=== PATIENT | male | born 1955 | race Caucasian/White ===

== ENCOUNTER → 2016-10-26 | Outpatient (CLI) | payer OTHER ==
[~2016-10-26] MED LIST: ADVAIR 250/501 DISK IH; ADVAIR HFA120 INHALA IH; AMLODIPINE BESY10 MG PO; BUPRENORPHIN-N1 EACH SL; BUPRENORPHINE HC2 MG SL; BUPRENORPHINE HC8 MG PO; BUPRENORPHINE HC8 MG SL; CARAFATE1 GM PO; CASTOR OIL PO; CATAPRES0.1 MG PO; CATAPRES0.2 MG PO; CELEXA10 M1 PO; CLONIDINE HCL0.2 MG PO; CONSTULOSE10 GM/15 M PO; DICYCLOMINE HCL20 MG PO; DOXEPIN HCL100 MG PO; DUONEB 2.5-0.5 M3 ML AEROSOL; FENTANYL1 EAC5 TD; FEOSOL325 MG PO; FLAGYL500 MG PO; FLOVENT 22120 INHALA IH; GABAPENTIN600 MG PO; HARVONI 90-4001 EACH PO; INCRUSE ELLI62.5 MCG IH; IPRATROPIU0.2 MG/1 M IH; LIDOCAINE700 MG TD; LINEZOLID600 MG PO; LOPRESSOR25 MG PO; MORPHINE SULFAT15 M1 PO; MS CONTIN,ORAMO30 MG PO; MYLICON,MYLANTA80 MG PO; NAPROXEN500 M2 PO; NEURONTIN100 MG PO; OMEPRAZOLE40 M1 PO; ONDANSETRON HCL4 MG SL; ONDANSETRON ODT4 MG PO; OXYCODONE-APAP1 EACH PO; PEPTO BISMOL240 ML PO; PERCOCET 5/31 TABLET PO; PREDNISONE20 MG PO; PRILOSEC20 MG PO; PRINIVIL10 MG PO; PROBIOTIC1 EAC1 PO; PROPRANOLOL HCL10 MG PO; PROVENTIL,2.5 MG/3 M IH; PROVENTIL17 GM IH; RANITIDINE HCL150 MG PO; RANITIDINE HCL300 M1 PO; REGLAN10 MG PO; REGLAN5 MG PO; SENOKOT,SENN1 TABLET PO; SPIRIVA RESPIMAT4 GM IH; SPIRONOLACTONE50 MG PO; SUBOXONE 8 MG-1 EAC2 PO; SUBOXONE PO; TESTOSTERO200 MG/12 IM; TYLENOL EXTRA500 MG PO; VANCOCIN HCL125 MG PO; VENTOLIN HFA18 GM IH; ZANTAC150 MG PO; ZESTRIL,PRINIVI20 MG PO; ZESTRIL40 MG PO; ZITHROMAX Z-PA250 MG PO; ZITHROMAX500 MG PO; ZOCOR10 M1 PO
== END | disposition home or self-care (01) ==
LOC: RAD 10-19 08:15
DX: R18.8 Other ascites (principal); R10.30 Lower abdominal pain, unspecified; K74.69 Other cirrhosis of liver; Z53.8 Procedure and treatment not carried out for other reasons
CPT/HCPCS: 76705

== ENCOUNTER 2017-06-06 00:36 | Inpatient (IN) | payer OTHER ==
[~2017-06-06] VITALS: Ht 175.3 cm; Wt 53.2 kg
[2017-06-06 01:20] LABS: HEMATOCRIT 33.3 % (38.0-50.0); MCH 28.1 PG (29.0-34.0); MCHC 32.4 G/DL (30.0-36.0); MCV 86.5 FL (86-99); MEAN PLAT.VOLUME 10.6 uM^3 (9.0-12.4); PLATELET COUNT 104 K/uL (156-360); RBC DIS.WIDTH-CV 14.9 % (11.8-14.6); RBC DIS.WIDTH-SD 46.8 % (39-53); RED BLOOD COUNT 3.85 M/uL (4.00-5.50); WHITE BLOOD COUNT 8.6 K/uL (4.1-10.2)
[2017-06-06 01:33] LABS: CHLORIDE 107 mEq/L (99-109); POTASSIUM 3.8 mEq/L (3.7-5.4); SODIUM 142 mEq/L (136-147)
[2017-06-06 01:35] LABS: GLUCOSE 166 mg/dL (70-99)
[2017-06-06 01:36] LABS: ANION GAP 12 MEQ/L (2-14)
[2017-06-06 01:37] LABS: TOTAL BILIRUBIN 0.8 mg/dL (0.0-1.0)
[2017-06-06 01:38] LABS: SERUM ETHYL ALCOHOL < 10 mg/dL
[2017-06-06 01:39] LABS: ALKALINE PHOSPHATASE 68 IU/L (3-129); GFR ESTIMATE (CALCULATED) > 59 mL/min/
[2017-06-06 01:40] LABS: UREA NITROGEN (BUN) 9 mg/dL (9-23)
[2017-06-06 01:41] LABS: DIRECT BILIRUBIN 0.4 mg/dL (0.0-0.3)
[2017-06-06 01:42] LABS: LIPASE 7 U/L (1.0-51.0)
[2017-06-06 02:46] LABS: TROP-I INTERPRETATION NEGATIVE; TROPONIN-I < 0.01 ng/mL (0.0-0.30)
[2017-06-06 03:11] LABS: INTER. NORMALIZED RATIO 1.2; PROTHROMBIN TIME 13.6 SEC (10.2-12.9)
[2017-06-06 03:13] LABS: PTT 28.8 SEC (25-37)
[2017-06-06 04:44] LABS: HEMATOCRIT 28.7 % (38.0-50.0); MCH 28.7 PG (29.0-34.0); MCHC 33.4 G/DL (30.0-36.0); MCV 85.9 FL (86-99); RBC DIS.WIDTH-CV 14.8 % (11.8-14.6); RBC DIS.WIDTH-SD 46.3 % (39-53); RED BLOOD COUNT 3.34 M/uL (4.00-5.50); WHITE BLOOD COUNT 6.3 K/uL (4.1-10.2)
[2017-06-06 05:21] LABS: MEAN PLAT.VOLUME 11.3 uM^3 (9.0-12.4); PLAT.SUFFICIENCY DECREASED
[2017-06-06 05:26] LABS: PLATELET COUNT 69 K/uL (156-360)
[2017-06-06] MEDS ORDERED: SPIRONOLACTONE100 MG PO (08:05)
[2017-06-06] MEDS ORDERED: FUROSEMIDE20 MG PO (08:05)
[2017-06-06] MEDS ORDERED: NORVASC5 MG PO (08:44)
[2017-06-06] MEDS ORDERED: PREDNISONE10 MG PO (08:45)
[2017-06-06] MEDS ORDERED: BUPRENORPHINE HC8 MG SL (08:46)
[2017-06-06] MEDS ORDERED: ZOFRAN4 MG PO (08:47)
[2017-06-06 13:25] VITALS: BP 167/79
[2017-06-06 14:00] VITALS: BP 143/81
[2017-06-06 15:43] LABS: HEMATOCRIT 28.5 % (38.0-50.0); MCV 86.9 FL (86-99)
[2017-06-06 19:18] VITALS: BP 126/98
== END 2017-06-06 22:12 | disposition home or self-care (01) | DRG 175 ==
LOC: EME 00:36 → 4EAST 08:12 → EDOF 08:12 → ENRESERV 08:17 → 4EAST 13:21
PROVIDERS: Emergency Medicine; Internal Medicine
PROC: 0DJ08ZZ Inspection of Upper Intestinal Tract, Via Natural or Artificial Opening Endoscopic (ICD-10-PCS; principal; 2017-06-06)
DX: I26.99 Other pulmonary embolism without acute cor pulmonale (principal); I81 Portal vein thrombosis; K92.0 Hematemesis; I85.00 Esophageal varices without bleeding; K76.6 Portal hypertension; R18.8 Other ascites; F11.20 Opioid dependence, uncomplicated; R04.2 Hemoptysis; F10.10 Alcohol abuse, uncomplicated; B19.20 Unspecified viral hepatitis C without hepatic coma; K21.9 Gastro-esophageal reflux disease without esophagitis; J44.9 Chronic obstructive pulmonary disease, unspecified; I86.4 Gastric varices; I86.8 Varicose veins of other specified sites; R00.0 Tachycardia, unspecified; K74.60 Unspecified cirrhosis of liver; K31.9 Disease of stomach and duodenum, unspecified; I10 Essential (primary) hypertension; D64.9 Anemia, unspecified; F17.210 Nicotine dependence, cigarettes, uncomplicated; K52.9 Noninfective gastroenteritis and colitis, unspecified; Z85.118 Personal history of other malignant neoplasm of bronchus and lung; Z93.3 Colostomy status; Z85.51 Personal history of malignant neoplasm of bladder; Z86.19 Personal history of other infectious and parasitic diseases; Z68.1 Body mass index [BMI] 19.9 or less, adult; Z85.028 Personal history of other malignant neoplasm of stomach
CPT/HCPCS: 71010; 71275; 74177; 80048; 80076; 82140; 83605; 83690; 84484; 85014; 85018; 85027; 85610; 85730; 86850; 86900; 86901; 87040; 93005; 99281; 99285; C9113; G0480; J0571; J1200; J2250; J2354; J2930; J3010; J7030; J7050; S0028

== ENCOUNTER 2017-06-11 04:51 | Emergency (ER) | payer OTHER ==
[~2017-06-11] VITALS: Ht 175.3 cm; Wt 51.9 kg
[~2017-06-11 04:51] MED LIST changes: +FUROSEMIDE20 MG PO; +NORVASC5 MG PO; +PREDNISONE10 MG PO; +SPIRONOLACTONE100 MG PO; +ZOFRAN4 MG PO
[2017-06-11 05:59] LABS: HEMATOCRIT 26.1 % (38.0-50.0); MCH 28.6 PG (29.0-34.0); MCHC 33.3 G/DL (30.0-36.0); MCV 85.9 FL (86-99); MEAN PLAT.VOLUME 10.9 uM^3 (9.0-12.4); PLATELET COUNT 72 K/uL (156-360); RBC DIS.WIDTH-CV 15.4 % (11.8-14.6); RBC DIS.WIDTH-SD 48.4 % (39-53); RED BLOOD COUNT 3.04 M/uL (4.00-5.50); WHITE BLOOD COUNT 8.8 K/uL (4.1-10.2)
[2017-06-11 06:05] LABS: INTER. NORMALIZED RATIO 1.2; PROTHROMBIN TIME 12.8 SEC (10.2-12.9)
[2017-06-11 06:08] LABS: CHLORIDE 107 mEq/L (99-109); SODIUM 135 mEq/L (136-147)
[2017-06-11 06:09] LABS: PTT 25.1 SEC (25-37)
[2017-06-11 06:10] LABS: GLUCOSE 204 mg/dL (70-99)
[2017-06-11 06:11] LABS: ANION GAP 6 MEQ/L (2-14)
[2017-06-11 06:14] LABS: ALKALINE PHOSPHATASE 51 IU/L (3-129); GFR ESTIMATE (CALCULATED) > 59 mL/min/
[2017-06-11 06:15] LABS: TOTAL BILIRUBIN 0.4 mg/dL (0.0-1.0); UREA NITROGEN (BUN) 11 mg/dL (9-23)
[2017-06-11 10:46] VITALS: BP 92/55
== END 2017-06-11 10:50 | disposition short-term general hospital (02) ==
LOC: EME 04:51
PROVIDERS: Emergency Medicine
DX: I26.99 Other pulmonary embolism without acute cor pulmonale (principal); K74.60 Unspecified cirrhosis of liver; B19.20 Unspecified viral hepatitis C without hepatic coma; Z85.118 Personal history of other malignant neoplasm of bronchus and lung; Z85.028 Personal history of other malignant neoplasm of stomach; Z85.51 Personal history of malignant neoplasm of bladder; I10 Essential (primary) hypertension; J44.9 Chronic obstructive pulmonary disease, unspecified; Z79.52 Long term (current) use of systemic steroids; F17.200 Nicotine dependence, unspecified, uncomplicated
CPT/HCPCS: 80053; 85027; 85610; 85730; 99281; 99285

== ENCOUNTER → 2017-09-01 | Outpatient (CLI) | payer OTHER | END | disposition home or self-care (01) | LOC: NUC 10:57 | DX: I26.99 Other pulmonary embolism without acute cor pulmonale (principal) | CPT/HCPCS: 78582; A9540; A9567 ==

== ENCOUNTER 2017-10-04 05:41 | Emergency (ER) | payer OTHER ==
[~2017-10-04] VITALS: Ht 175.3 cm; Wt 55.0 kg
[2017-10-04] VITALS (10 sets, daily range): BP systolic 87–119; BP diastolic 55–72
[2017-10-04 06:08] LABS: HEMATOCRIT 23.4 % (38.0-50.0); HEMOGLOBIN 7.3 G/DL (12.5-16.6); MCH 25.6 PG (29.0-34.0); MCHC 31.2 G/DL (30.0-36.0); MCV 82.1 FL (86-99); PLATELET COUNT 162 K/uL (156-360); RBC DIS.WIDTH-CV 17.7 % (11.8-14.6); RBC DIS.WIDTH-SD 51.5 % (39-53); RED BLOOD COUNT 2.85 M/uL (4.00-5.50)
[2017-10-04 06:24] LABS: CHLORIDE 109 mEq/L (99-109); POTASSIUM 4.1 mEq/L (3.7-5.4); SODIUM 139 mEq/L (136-147)
[2017-10-04 06:26] LABS: GLUCOSE 291 mg/dL (70-99)
[2017-10-04 06:30] LABS: CREATININE 0.9 mg/dL (0.6-1.3); GFR ESTIMATE (CALCULATED) > 59 mL/min/ (58.99-99999)
[2017-10-04 06:31] LABS: UREA NITROGEN (BUN) 11 mg/dL (9-23)
[2017-10-04 07:29] LABS: ALBUMIN 3.4 g/dL (3.2-4.8)
[2017-10-04 07:32] LABS: TOTAL PROTEIN 6.1 g/dL (6.4-8.3)
[2017-10-04 07:34] LABS: TOTAL BILIRUBIN 0.5 mg/dL (0.0-1.0)
[2017-10-04 07:35] LABS: ALKALINE PHOSPHATASE 71 IU/L (3-129)
[2017-10-04 07:37] LABS: AST (GOT) 14 IU/L (2-34); DIRECT BILIRUBIN 0.3 mg/dL (0.0-0.3)
[2017-10-04 07:38] LABS: ALT (GPT) 8 IU/L (3-49)
[2017-10-04 07:39] LABS: LIPASE 4 U/L (1.0-51.0)
[2017-10-04 08:28] LABS: INTER. NORMALIZED RATIO 1.3
== END 2017-10-04 14:15 | disposition short-term general hospital (02) ==
LOC: EME 05:41
PROVIDERS: Emergency Medicine
PROC: 30233N1 Transfusion of Nonautologous Red Blood Cells into Peripheral Vein, Percutaneous Approach (ICD-10-PCS; principal; 2017-10-04)
DX: K92.2 Gastrointestinal hemorrhage, unspecified (principal); D64.9 Anemia, unspecified; I85.01 Esophageal varices with bleeding; K74.60 Unspecified cirrhosis of liver; B19.20 Unspecified viral hepatitis C without hepatic coma; J44.9 Chronic obstructive pulmonary disease, unspecified; K21.9 Gastro-esophageal reflux disease without esophagitis; F31.9 Bipolar disorder, unspecified; F41.9 Anxiety disorder, unspecified; F32.9 Major depressive disorder, single episode, unspecified; F17.200 Nicotine dependence, unspecified, uncomplicated; Z85.028 Personal history of other malignant neoplasm of stomach; Z85.118 Personal history of other malignant neoplasm of bronchus and lung; Z85.51 Personal history of malignant neoplasm of bladder; Z86.711 Personal history of pulmonary embolism; Z88.6 Allergy status to analgesic agent; Z88.5 Allergy status to narcotic agent; Z88.8 Allergy status to other drugs, medicaments and biological substances; Z91.041 Radiographic dye allergy status
CPT/HCPCS: 71045; 80048; 80076; 83690; 85027; 85610; 86850; 86900; 86901; 86920; 99281; 99285; C9113; J2354; J7030; J7050; P9016

== ENCOUNTER → 2018-03-01 | Outpatient (CLI) | payer OTHER ==
[~2018-03-01] MED LIST changes: +ALBUTEROL1.25 MG/3 IH; +ALDACTONE100 MG PO; +BENTYL20 MG PO; +ENULOSE10 GM/15 M PO; +SUBOXONE 8 MG-1 EAC2 SL
[2018-03-01 14:33] LABS: TYPE OF FLUID PARACENTESIS
[2018-03-01 15:35] LABS: BODY FLUID PROTEIN < 3.0 G/DL
[2018-03-01 15:41] LABS: APPEARANCE SL. HAZY-YELLOW; BODY FLUID EOSINOPHILS 2 % (0-25); BODY FLUID RBC'S 5000 /MM^3 (0-100); BODY FLUID WBC'S 148 /MM^3 (0-500); MONONUCLEAR WBC'S 30 %; POLYNUCLEAR WBC'S 68 % (0-25)
== END | disposition home or self-care (01) ==
LOC: RAD 13:29
PROVIDERS: Internal Medicine Gastroenterology
PROC: 0W9G3ZZ Drainage of Peritoneal Cavity, Percutaneous Approach (ICD-10-PCS; principal; 2018-03-01)
DX: R18.8 Other ascites (principal); K74.60 Unspecified cirrhosis of liver
CPT/HCPCS: 49083; 84157; 87070; 87075; 87205; 88108; 89051